=== PATIENT | male | born 1940 | race Hispanic/Latino ===

== ENCOUNTER → 2019-06-12 | Outpatient (CLI) | payer MEDICARE | END | disposition home or self-care (01) | LOC: RAH 08:24 | PROVIDERS: ATTEND Internal Medicine Cardiovascular Disease | DX: I37.1 Nonrheumatic pulmonary valve insufficiency (principal); I31.3 Pericardial effusion (noninflammatory) | CPT/HCPCS: 93306 ==

== ENCOUNTER → 2019-10-04 | Outpatient (CLI) | payer MEDICARE | END | disposition home or self-care (01) | LOC: RAH 07:26 | PROVIDERS: ATTEND Anesthesiology | DX: D18.09 Hemangioma of other sites (principal); M54.14 Radiculopathy, thoracic region; M40.204 Unspecified kyphosis, thoracic region | CPT/HCPCS: 72146 ==

== ENCOUNTER → 2022-03-16 | Outpatient (CLI) | payer MEDICARE ==
[2022-03-16 12:38] LABS: ALBUMIN 3.8 g/dL (3.5-5.0); BILIRUBIN,TOTAL 0.7 mg/dL (0.2-1.0); CREATININE 0.9 mg/dL (0.5-1.5); POTASSIUM 4.4 mmol/L (3.5-5.1); TOTAL PROTEIN, SERUM 7.4 g/dL (6.0-8.3)
== END | disposition home or self-care (01) ==
LOC: LAB 10:28
PROVIDERS: ATTEND Internal Medicine Cardiovascular Disease
DX: R42 Dizziness and giddiness (principal); R55 Syncope and collapse; I10 Essential (primary) hypertension
CPT/HCPCS: 36415; 80053; 80061

== ENCOUNTER → 2025-10-16 | Outpatient (CLI) | payer OTHER ==
--- NOTE | 2025-10-16 22:38 | HMCIMG ---
EXAM: MR Brain without Intravenous Contrast. CLINICAL HISTORY: Syncope and collapse. TECHNIQUE: Multiplanar, multisequence MRI of the brain was performed without intravenous contrast, including T1, T2, FLAIR, and gradient echo sequences. CONTRAST: Without. COMPARISON: No prior imaging is available for comparison. FINDINGS: BRAIN: There is prominence of the sulcal spaces and basal cisterns with ex vacuo dilatation of the ventricles, consistent with age-related cerebral atrophy. Diffuse periventricular and deep white matter T2/FLAIR hyperintensities are present, suggestive of Fazekas grade II small vessel ischemic changes. An old lacunar infarct is identified in the left periventricular white matter and basal ganglia. No acute diffusion restriction is observed. No intracranial mass. No midline shift or extra-axial fluid collection. No cerebellar tonsillar ectopia. No abnormal enhancement is visualized. Flow voids of the major intracranial arteries and veins are preserved. VENTRICLES: No hydrocephalus. ORBITS: The orbits are normal. SINUSES AND MASTOIDS: Fluid is present in the bilateral mastoid air cells, greater on the left. Minimal mucosal thickening is seen in the left maxillary sinus. BONES: No acute fracture or focal osseous lesion. HEMORRHAGE/CALCIFICATION: No foci of susceptibility on gradient sequences are identified to suggest acute or chronic hemorrhage or intracranial calcification. IMPRESSION: 1. No acute infarction, hemorrhage, or mass identified. 2. Diffuse periventricular and deep white matter T2/FLAIR hyperintensities, consistent with Fazekas grade II small vessel ischemic changes. 3. Chronic lacunar infarct in the left periventricular white matter/basal ganglia. 4. 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 /[place]
== END | disposition home or self-care (01) ==
LOC: RAH 13:17
PROVIDERS: ATTEND Nurse Practitioner Family
DX: G31.9 Degenerative disease of nervous system, unspecified (principal); R55 Syncope and collapse; Z86.73 Personal history of transient ischemic attack (TIA), and cerebral infarction without residual deficits
CPT/HCPCS: 70551